=== PATIENT | female | born 1965 | race African-American/Black ===

== ENCOUNTER 2024-09-17 23:43 | Emergency (ER) | payer BC, MEDICAID ==
[~2024-09-17] VITALS: Ht 172.7 cm; Wt 95.0 kg
[2024-09-18 00:27] VITALS: BP 171/94; PULSE 64; RESP 18; TEMP 97.9; O2SAT 99
[2024-09-18] MEDS ORDERED: IBUP-2028 MT (02:07)
[2024-09-18] MEDS ORDERED: AM250 MT (02:07)
[2024-09-18] MEDS: IBUPROFEN 400MG TABLET PO ONE (02:34)
== END 2024-09-18 02:11 | disposition home or self-care (01) ==
LOC: ER 23:43
DX: J02.9 Acute pharyngitis, unspecified (principal); I10 Essential (primary) hypertension; Z20.822 Contact with and (suspected) exposure to COVID-19
CPT/HCPCS: 87070; 87426; 87430; 87804; 99283